=== PATIENT | female | born 1990 | race Two or more races ===

== ENCOUNTER 2024-07-21 09:27 | Outpatient (CLI) | payer OTHER, SELFPAY ==
[2024-07-21] VITALS (8 sets, daily range): BP systolic 119–125; BP diastolic 81–89; PULSE 74–90; BMI 31.9
[2024-07-21 10:11] LABS: Add Urine Microscopic? YES; Appearance Urine Cloudy (Clear); Bacteria Urine 2+ /hpf; Bilirubin Urine Negative (Negative); Blood Urine 1+ (Negative); Color Urine Yellow (Yellow); Glucose Urine UA Negative (Negative); Ketones Urine Negative (Negative); Leukocyte Esterase Ur 2+ LEU/UL (Negative); Nitrate Urine Negative (Negative); Non Pathogenic Casts 0-2; Protein Urine Negative (Negative); Specific Grav Ur 1.015 (1.001-1.035); Squamous Epithelial Cell Urine Moderate /hpf (Few); pH Urine 6.5 (5.0-9.0)
[2024-07-21 10:17] LABS: Total Protein Urine Random 10 mg/dL; Ur Ttl Prot Creatinine Ratio 0.09 mg/mg (0-0.20)
[2024-07-21 10:23] LABS: Basophils Percent Auto 0.2 % (0.2-1.2); Eosinophils Absolute Auto 0.1 K/mm3 (0-0.3); Eosinophils Percent Auto 1.7 % (0-4.4); Hematocrit 33.7 % (37.0-47.0); Hemoglobin 11.3 g/dL (12.0-15.0); Immature Granulocyte Absolute 0.05 K/mm3 (0.00-0.031); Immature Granulocyte Percent A 0.6 % (0-0.5); Lymphocytes Absolute Auto 1.52 K/mm3 (0.9-3.2); Lymphocytes Percent Auto 18.2 % (18.3-44.2); Mean Corpuscular HGB Conc 33.5 g/dl (32-36); Mean Corpuscular Hemoglobin 31.3 pg (26-34); Mean Corpuscular Volume 93.4 fl (80-100); Mean Platelet Volume 9.9 fl (7.4-10.4); Monocytes Absolute Auto 0.6 K/mm3 (0.1-0.6); Monocytes Percent Auto 7.4 % (2.6-8.5); Neutrophils Percent Auto 71.9 % (45.5-73.1); Platelet Count Result 247 k/mm3 (150-375); Red Blood Count 3.61 M/mm3 (4.2-5.4); Red Cell Distribution Width 13.2 % (11.5-14.5); White Blood Count 8.3 K/mm3 (4.5-10.0)
--- OUTSIDE RECORDS SUMMARY | 2024-07-21 10:32 | XMS_ITS | Data Portability ---
Author Organization [facility] Howe Address [address] [place] [address] [place] [address] Assessment Encounter Date Assessment Date Assessment LastModified by Organization Details LastModified Time 07/06/2024 07/06/2024 Patient is36 ___weeks . Discussed plan. [email or web address] Not available 07/06/2024 13:35:10 07/14/2024 07/14/2024 Patient is ___weeks . Discussed plan. [email or web address] Not available 07/14/2024 11:14:23 Plan of Treatment Reminders Order Date Submit Date Provider Last Modified By Organization Details Last Modified Time Details Appointments OB ROUTINE 2024 08:30A Kyle Granda CNM Not available Not available Not available INDUCTION 2024 05:00A Kyle Granda CNM Not available Not available Not available Lab streptoco ccus group B, culture, unspecifi ed specimen 2024 025 [facility] (Lab), [address], [place], [address], 07/09/2024 12:00:41 Referral None recorded. Procedures None recorded. Surgeries None recorded. Imaging US, obstetric , follow-up 2024 025 [email or web address] [place], [address], [address], [place], [address], 07/14/2024 17:09:20 US, obstetric , follow-up 2024 [address], [address], [place], [address], 07/06/2024 14:13:21 Medication Orders None recorded. Patient TargetsNo targets recorded. Patient InstructionsNo instructions recorded. Reason for Referral None Reported. Results Created Date Observation Date Name Description Value Unit Range Abnormal Flag Note LastModifiedBy Organization Detail LastModifiedTime 06/09/1906/08/2024 US, obste tric, follo w-up No observ ation record ed. [address], [place], [address], 06/08/2024 12:38:59 06/09/1906/08/2024 US, obste tric, follo w-up No observ ation record ed. [email or web address] Mariella [address], [place], [address], 06/10/2024 00:26:35 07/07/19 25 07/06/2024 US, obste tric, follo w-up No observ ation record ed. [address], [place], [address], 07/06/2024 14:10:38 07/07/19 25 07/06/2024 US, obste tric, follo w-up No observ ation record ed. [email or web address] Mariella [address], [place], [address], 07/07/2024 14:46:43 07/15/19 25 07/14/2024 US, obste tric, follo w-up No observ [facility]ion [email or web address] [address], [place], [address], 07/14/2024 13:18:32 07/15/19 25 07/14/2024 US, obste tric, follo w-up No observ ation record ed. [address], [place], [address], 07/20/2024 13:24:33 Result Notes None recorded. Problems Name Problem SNOMED Code Status Onset Date Resolution Date Notes Provider Name and Address Organization Details Recorded Time 98797284 Active 2023 Sara Head [facility], [facility] 4 13:04:06 Dilatatio n of renal pelvis 123479941 Active rpt us at 32wks Estephania Everett [facility], [facility] 5 21:38:04 Large for gestation age fetus 686409154 Active LIKELY MACROSOMI C AT 39 WKS Ted Bennett MD [address], [place], [address], [facility] 5 11:39:21 Notes:Encounter for antenata l screening of mother Recorded Elsewhere: No Location: [facility] Source: EHR Chronic: N Practice ID: [id number] Billable Time: 10:30:00 AM Encounter for screening of mother Practice ID: [id number] Encounter for screening of mother Recorded Elsewhere: No Location: [facility] Source: EHR Chronic: N Practice ID: [id number] Billable Time: 05:30:00 PM Encounter for screening of mother Practice ID: [id number] Problem Notes None recorded. Procedures Surgical History Date Name Laterality Status Provider Name and Address Organization Details Recorded Time 06/20/19 24 Date of Last Pap Smear completed Lesley Lindquist [facility] 12/31/2023 16:43:07 06/19/19 23 IUD Removal completed JOSÉ Abreu- [address], [place], [address], [facility] 06/18/2022 10:32:54 03/31/19 09 extraction of wisdom tooth completed Lesley Lindquist [facility] 03/12/2022 10:18:33 03/31/18 95 Tonsillectomy completed Lesley Lindquist [facility] 03/12/2022 10:18:19 Imaging Results Imaging Date Name Status LastModified by Organiz ation Details LastModified Time 06/08/2024 US, obstetric, follow-up completed pari [place] [address], [place], [address], 06/08/2024 12:38:59 06/08/2024 US, obstetric, follow-up completed payton Mariella [address], [place], [address], 06/10/2024 00:26:35 07/06/2024 US, obstetric, follow-up completed [email or web address] [place] [address], [place], [address], 07/06/2024 14:10:38 07/06/2024 US, obstetric, follow-up completed [email or web address] [address], [place], [address], 07/07/2024 14:46:43 07/14/2024 US, obstetric, follow-up completed [email or web address] [place] [address], [place], [address], 07/14/2024 13:18:32 07/14/2024 US, obstetric, follow-up completed Mariella [address], [place], [address], 07/20/2024 13:24:33 Procedure Notes None recorded. Medical Equipment None Reported. Allergies No known drug allergies Medications Name Sig Start Date Stop Date Status Note LastModified by Organization Details LastModified Time Mirena 21 mcg/24 hr (up to 8 years) 52 mg intrauter ine device 06/19 completed Prescrib ed Elsewher e: Yes Loca tion: [facility] M odify By: nahun martinezuntgregoria DateTime : 10/06/19 16 02:45:00 PM Not Available Not Available Not Available Metrogel Vaginal 0.75 % (37.5 mg/5 gram) insert 1 applicat orful by vaginal route every day at bedtime for 5 nights 09/19 completed Prescrib ed Elsewher e: No Locat ion: [facility]ista [facility] odify By: claudia gonzalez DateTime : 02/06/20 16 10:08:41 AM Not Available Not Available Not Available Flagyl 500 mg tablet take 1 tablet by oral route every 12 hours 03/12 completed Prescrib ed Elsewher e: No Locat ion: [facility] michele [facility] odify By: matthieu Bautista ncounter DateTime : 07/07/19 19 11:27:07 AM Not Available Not Available Not Available Vitamin D2 1,250 mcg (50,000 unit) capsule take 1 capsule by oral route every week 08/30 completed Prescrib ed Elsewher e: No [facility] By: nahun Bautista ncounter DateTime : 05/24/19 16 09:56:01 AM Not Available Not Available Not Available metoclopr amide 10 mg tablet 07/21 completed Not Available Not Available Not Available Zithromax 500 mg tablet take 2 tablet (1000MG) by oral route once 05/12 completed Prescrib ed Elsewher e: No Locat ion: [facility] michele [facility] odify By: jlely Gutiérrez untgregoria DateTime : 04/27/19 13 10:35:40 AM Not Available Not Available Not Available Mononessa (28) 0.25 mg-35 mcg tablet TAKE 1 TABLET BY ORAL ROUTE EVERY DAY 01/24 completed Prescrib ed Elsewher e: No [facility] By: dimas barros DateTime : 08/12/19 15 01:01:57 PM Not Available Not Available Not Available active Not Available Not Avai lable Not Available Triveen-D uo DHA 29 mg-1 mg-400 mg oral pack take 2 by Oral route once for 30 days 02/22 completed Prescrib ed Elsewher e: No Locat ion: [facility]hael bautista [facility] M odify By: nawaf Bautista ncounter DateTime : 01/25/20 10:30:00 AM Not Available Not Available Not Available ID NOW COVID-19 Test Kit TEST DIRECTED TODAY 06/18 completed Not Available Not Available Not Available Vitals Date Recorded Body weight Body mass index (BMI) Body height Systolic blood pressure Diastolic blood pressure Provider Name and Address Organization Details Last Updated DateTime 07/06/2024 74871.69 689 g 31.8 kg/m2 167.64 cm 127 mm[Hg] 84 mm[Hg] Lesley Lindquist [facility] 11:23:17 Date Recorded Body weight Systolic blood pressure Diastolic blood pressure Provider Name and Address Organization Details Last Updated DateTime 07/14/2024 25663.6587 4 g 143 mm[Hg] 96 mm[Hg] Shanel Simon [facility] 07/14/2024 11:15:20 Date Recorded Body height Body mass index (BMI) Body weight Systolic blood pressure Diastolic blood pressure Provider Name and Address Organization Details Last Updated DateTime 07/21/2024 167.64 cm 32.8 kg/m2 82688.25 g 134 mm[Hg] 90 mm[Hg] Lesley Lindquist [facility] 09:42:21 Social History Question Answer Notes LastModified by Organizat ion Details LastModified Time Tobacco Smoking Status [facility] 06/18/2022 09:47:22 What Is Your Level Of Alcohol Consumption? None [email or web address] Information not available 12/31/2023 If You Are , What Was Your Level Of Alcohol Consumption Prior To ? Occasional Information not available 06/18/2022 Are You Blind Or Do You Have Difficulty Seeing? No [email or web address] Information not available 03/12/2022 What Is Your Level Of Caffeine Consumption? Moderate [email or web address] Information not available 03/12/2022 How Much Tobacco Do You Chew? None [email or web address] Information not available 03/12/2022 In The 14 Days Before Symptom Onset, Have You Had Close Contact With A Laboratory-confir med COVID-19 While That Case Was Ill? No [email or web address] Information not available 03/12/2022 In The 14 Days Before Symptom Onset, Have You Had Close Contact With A Person Who Is Under Investigation For COVID-19 While That Person Was Ill? No [email or web address] Information not available 03/12/2022 Have You Been To An Area Known To Be High Risk For COVID-19? No [email or web address] Information not available 03/12/2022 Are You Currently Employed? Yes [email or web address] Information not available 06/08/2024 Are You Deaf Or Do You Have Serious Difficulty Hearing? No [email or web address] Information not available 03/12/2022 What Type Of Diet Are You Following? REGULAR Information not available 03/12/2022 What Is The Highest Grade Or Level Of School You Have Completed Or The Highest Degree You Have Received? 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 No [email or web address] Information not available 03/12/2022 Have You Ever Been Counseled For Unhealthy Alcohol Use? No Information not available 06/18/2022 Do You Use Protection During Sex? Usually [email or web address] Information not available 03/12/2022 Do You Use Your Seat Belt Or Car Seat Routinely? Yes [email or web address] Information not available 03/12/2022 Are You Sexually Active? Yes [email or web address] Information not available 05/25/2024 Do You Have Smoke And Carbon Monoxide Detectors In Your Home? Yes [email or web address] Information not available 03/12/2022 How Much Tobacco Do You Smoke? No [email or web address] Information not available 03/12/2022 Do You Feel Stressed (tense, Restless, Nervous, Or Anxious, Or Unable To Sleep At Night)? [id number] Information not available 06/18/2022 Do You Use Any Illicit Or Recreational Drugs? No [email or web address] Information not available 03/12/2022 Do You Use Sunscreen Routinely? Yes [email or web address] Information not available 03/12/2022 Has Tobacco Cessation Counseling Been Provided? No Information not available 06/18/2022 Have You Used IV Drugs? No [email or web address] Information not available 03/12/2022 Do You Or Have You Ever Used Any Other Forms Of Tobacco Or Nicotine? No Information not available 06/18/2022 Sex: Unknown Functional Status Question Answer Note LastModified by Organizat ion Details LastModified Time Do you have difficulty walking or climbing stairs? No Information not available 06/18/2022 Are you able to walk? YESWOREST [email or web address] Information not available 03/12/2022 Are you able to care for yourself? Yes Information not available 06/18/2022 Do you have difficulty dressing or bathing? No Information not available 06/18/2022 What is your exercise level? Moderate Information not available 03/12/2022 Mental Status None recorded. Family History Relationship Description Onset Age of this Age Resolved Age Notes LastModified by Organization Details LastModified Time Father Diabetes mellitus [email or web address] Not available 03/12 10:16:46 Mother Diabetes mellitus [email or web address] Not available 03/12 10:17:04 Maternal Grandmother Diabetes mellitus [email or web address] Not available 03/12 10:17:15 Maternal Grandfather Heart disease Not available 03/12 10:17:30 Medical History Condition Response Allergies (Food, seasonal, environmental ) N Other N Breast Cancer N Drug/Latex Allergies/Reactions N Blood Transfusion N Dermatologic Disorders N Lung Disease N Defects or Inherited Disease N Breast Problem N Gestational Diabetes N Hematologic disorders N Anesthesia Complications N History of STI Y Deep Vein Thrombosis N Polycystic ovary syndrome N Anxiety Disorder N Autoimmune disease N Arthritis N Infertility N Polyps N Acid Reflux (GERD) N History of abnormal pap N Cancer N Stroke N Varicosities N Neurologic/Epilepsy N Endometriosis N High Cholesterol N Headaches N Fibromyalgia N Kidney Disease N Heart Problems N Kidney or Bladder Problems N Thyroid Problems N GI Problems N Eating Disorder N Anemia N Art (IVF or FET) N Psychiatric Illness N Ovarian Cancer N Diabetes N Pulmonary (TB, Asthma) N Hepatitis/Liver Disease N No Past Medical History N Eczema N Urinary Tract Infection N Abuse/Domestic Violence N Asthma N Trauma/Violence N Depression/ depression N Heart Disease N Pre-Eclampsia N Hypertension N Osteoporosis N Thrombophilias N Gynecological History Statement/Question Response Abnormal Pap N Flow Moderate Date of Last Mammogram Date of LMP 10/23/2023 N On BCP's at Conception? Y STIs/STDs N Was last menstrual period normal Y HPV Vaccine N Current Control Method Age at First Child 25 Are cycles usually normal Y Sexually Active? N None Date of DEXA bone scan Age of first menstrual cycle 10 Date of Last Pap Smear 06/20/2023 Sexual Problems? N LMP Definite Desired Control Method None N Obstetrics History GPAL:G 2 P 1 0 0 1 Type Value Full Term 1 Living 1 Total 2 Past Encounters Encounter ID Performer Location Encounter Start Date Encounter Closed Date Diagnosis/Indication Diagnosis SNOMED-CT Code Diagnosis ICD10 Code Diagnosis Note [id number] Wendy Hubbard [facility] [address] [address] 03/12/2022 09:49:18 03/12/2022 10:45:12 Venereal disease screening 981144612 Z11.3 Here today for updated STD screening. Will schedule WWE for May 2022.Will reach out with results portal/lexii l if abn. Safe sex informatio n counseling provided.H jerry Hx updated Time spent in visit is a total of 30 mins with at least 50% of visit consisting of counseling and review of plan of care. [id number] Wendy Hubbard [facility] [address] [address] 06/18/2022 09:31:34 06/18/2022 11:13:12 Gynecologic examination 12633681 Z01.419 Take Calcium with Vitamin D 1200mg daily if not receiving in daily diet. It is strongly advised to have an annual flu shot and up can obtain at most pharmacies . If you have not had a TDap shot in the last 10 years you should obtain one as well. Discussed with patient & provided with informatio n regarding Gardisil vaccine to prevent the 4 strains for HPV that cause cervical cancer if under age 26. Encourage safe sexual practices, to use condoms and limit partners if not already in a monogamous relationsh ip. Do monthly self breast exams. Have mammogram yearly or every other year depending on family history. BRCA testing is now available for patients with strong genetic history of female cancer. If interested contact the office. Engage in daily exercise of low impact aerobic exercise 45-60 minutes 4-5 times weekly. Avoid tobacco and illicit drugs as well as using moderation with alcohol intake less than 1-2 8 oz beverages daily. This lifestyle behavior pattern will lead to less health conditions and longer life span. If BMI greater than 25 weight watchers or dietary consult advised. Patient received above instructio ns, and questions have been answered. If you have any questions please call or respond to this email. Patient was made aware of the patient portal and may obtain a paper copy of today's plan if desired. Pap/hpv sent STD Screen sent Genetic Screen discussed Colon Screen na Dexa Screen na Routine Labs PCPMammo na Removal of intrauterine device 99410801 Z30.432 It was explained that she may have bleeding or spotting after the removal of the device today as well. If cannot see the strings of this device we will need to get an US image to make that the device is still in place and not in an unobtainab le position. She expressed understand ing of all the above instructio ns. [id number] Wendy Hubbard , [facility] [address] [address] 06/20/2023 09:23:38 06/20/2023 09:42:05 Gynecologic examination 58359060 Z11.51 Z11.3 Z11.8 Take Calcium with Vitamin D 1200mg daily if not receiving in daily diet. It is strongly advised to have an annual flu shot and up can obtain at most pharmacies . If you have not had a TDap shot in the last 10 years you should obtain one as well. Discussed with patient & provided with informatio n regarding Gardisil vaccine to prevent the 4 strains for HPV that cause cervical cancer if under age 26. Encourage safe sexual practices, to use condoms and limit partners if not already in a monogamous relationsh ip. Do monthly self breast exams. Have mammogram yearly or every other year depending on family history. BRCA testing is now available for patients with strong genetic history of female cancer. If interested contact the office. Engage in daily exercise of low impact aerobic exercise 45-60 minutes 4-5 times weekly. Avoid tobacco and illicit drugs as well as using moderation with alcohol intake less than 1-2 8 oz beverages daily. This lifestyle behavior pattern will lead to less health conditions and longer life span. If BMI greater than 25 weight watchers or dietary consult advised. Patient received above instructio ns, and questions have been answered. If you have any questions please call or respond to this email. Patient was made aware of the patient portal and may obtain a paper copy of today's plan if desired. Pap/hpv sent STD Screen sent Genetic Screen discussed Colon Screen na Dexa Screen na Routine Labs PCPMammo na Brittney Charles [facility] [address] [address] 12/25/2023 16:51:03 12/25/2023 17:31:03 test positive 995699302 Z32.01 [id number] Josette Granda [facility] [address],[place] [address] 12/31/2023 17:27:14 01/01/2024 09:37:09 Venereal disease screening 014773923 Z11.3 Amenorrhea 29014728 N91. 2 reviewed precaution s and educationn ipt and labs with new ob and first lookpap up to dateok for reglancont inue vitamin.pr obiotics ok Nausea and vomiting 1693 2000 R11.2 [id number] Gianna Archibald [facility] [address],[place] [address] 01/19/2024 12:31:46 01/19/2024 13:36:52 screening 994903798 Z36.82 Z3A.12 [id number] MAJO HILL MD [facility] [address],[place] [address] 01/19/2024 13:57:21 01/19/2024 14:32:12 Routine care 120107957 Z34.91 [id number] MAJO HILL MD [facility] [address],[place] [address] 02/16/2024 09:21:31 02/16/2024 10:04:27 Routine care 910746004 Z34.91 [id number] [facility] [address],[place] [address] 03/15/2024 11:04:28 03/15/2024 12:28:07 screening for malformation 619945644 Z36.3 Z3A.20 [id number] MAJO HILL MD [facility] [address],[place] [address] 03/15/2024 11:04:47 03/15/2024 12:41:43 Routine care 982265637 Z34.91 [id number] [facility] [address],[place] [address] 04/12/2024 09:54:28 04/12/2024 10:42:50 screening 215503824 Z36.2 Gestation period, 24 weeks 391351551 Z3A.24 [id number] MAJO HILL MD [facility] [address],[place] [address] 04/12/2024 09:54:47 04/12/2024 11:00:08 Dilatation of renal pelvis 325030758 O36.8999 - bilateral- L 4.2mm, R4.8mm at 24 weeks. 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 Gestation period, 30 weeks 48018539 Z3A.30 - continue PNV [id number] [facility] [address],[place] [address] 06/08/2024 11:27:46 06/08/2024 12:21:44 condition affecting obstetrical care of mother 367543311 O35.8XX0 Z3A.32 [id number] MAJO HILL MD [facility] [address],[place] [address] 06/08/2024 11:28:04 06/08/2024 12:48:57 Excessive growth affecting management of mother 36556620 O36.63X0 - 98% at 32 weeks- repeat at 36 weeks Gestation period, 32 weeks 5554351 Z3A.32 [id number] Josette Granda [facility] [address],[place] [address] 06/23/2024 09:54:36 06/23/2024 10:15:17 Gestation period, 34 weeks 02515296 Z3A.34 [id number] [facility] [address],[place] [address] 07/06/2024 10:34:20 07/06/2024 11:18:17 Large for gestation age fetus 325100416 O36.63X0 Z3A.36 [id number] Josette Granda [facility] [address],[place] [address] 07/06/2024 10:34:37 07/06/2024 13:49:43 Gestation period, 36 weeks 54553581 Z3A.36 screening 2437 52986 Z36.85 [id number] [facility] [address],[place] [address] 07/14/2024 10:33:46 07/14/2024 11:13:19 Large for gestation age fetus 434959847 O36.63X0 Z3A.37 [id number] Ted Bennett MD [facility] [address],[place] [address] 07/14/2024 10:34:00 07/14/2024 11:45:44 Routine care 008308593 Z34.83 Health Concerns Section Related Observation LastModified by Organization Detai ls LastModified Time None Recorded Concern Status LastModified by Organization Details LastModified Time None Recorded Advance Directives Directive None Recorded Payers Encounter Date Sequence Insurance Name Policy Number Policy Torres Covered Member ID Torres Member ID Guarantor Name 07/06/[address] [facility] [id number] Lisa Gupta [id number] Lisa Gupta 07/06/[address] [facility] [id number] Lisa Gupta [id number] Lisa Gupta 07/14/[address] [facility] [id number] Lisa Gupta [id number] Lisa Gupta 07/14/[address] [facility] [id number] Lisa Gupta [id number] Lisa Gupta OBGyn Episode Ob Episode Information Episode Created Date Number of Fetuses Patient Bloodtype Patient rh Status Prepregnancy Weight lbs Domestic Partner Domestic Partner Phone Father Name Marketing Copywriter Status 03/12/20 1 CLOSED Fetus Data First Name Last Name Admitted to NICU Weight (g) Sex Living Outcome Pediatric Complications Fetus ID Race Codes Race Delivery Type 3628.73 6 M Full Term [id number] Vaginal Delivery Devon Calculation Initial Devon Date Initial Exam Date Initial Exam Provider Initial Ultrasound Date Last Menstrual Period Date Ultra Sound Weeks Gestation 0 Eighteen To Twenty Week Devon Update Ultra Sound Date Fundal Height At Umbil Quickening Date Ultra Sound Latest Weeks Gestation Final Devon Confirmed By Final Devon Confirmed Date Final Devon Date Ultra Sound Latest Days Gestation 0 0 Menstrual History Last Menstrual Date Menses Monthly On Bcp Conception Prior Menses Frequency Hcg Plus Date Menarche Onset Age Delivery Information Delivery Date Delivery Type Labor Anesthesia Weeks Gestation Incision Type Labor Labor Length Hrs Delivered By Post Complications Tubal Sterilization Discharge Date Comments 6 40 +GBS / placenta previa Discharge Information Feeding Method Contraceptive Method Maternal HG B and HCT Levels Ob Episode Information Episode Created Date Number of Fetuses Patient Bloodtype Patient rh Status Prepregnancy Weight lbs Domestic Partner Domestic Partner Phone Father Name Marketing Copywriter Status 03/12/20 22 1 DELETED Devon Calculation Initial Devon Date Initial Exam Date Initial Exam Provider Initial Ultrasound Date Last Menstrual Period Date Ultra Sound Weeks Gestation 0 Eighteen To Twenty Week Devon Update Ultra Sound Date Fundal Height At Umbil Quickening Date Ultra Sound Latest Weeks Gestation Final Devon Confirmed By Final Devon Confirmed Date Final Devon Date Ultra Sound Latest Days Gestation 0 0 Menstrual History Last Menstrual Date Menses Monthly On Bcp Conception Prior Menses Frequency Hcg Plus Date Menarche Onset Age Delivery Information Delivery Date Delivery Type Labor Anesthesia Weeks Gestation Incision Type Labor Labor Length Hrs Delivered By Post Complications Tubal Sterilization Discharge Date Comments 6 false Boy-Meng Discharge Information Feeding Method Contraceptive Method Maternal HG B and HCT Levels Ob Episode Information Episode Created Date Number of Fetuses Patient Bloodtype Patient rh Status Prepregnancy Weight lbs Domestic Partner Domestic Partner Phone Father Name Marketing Copywriter Status 01/19/20 24 1 B Positive 181 Claudio Singh OPEN Fetus Data First Name Last Name Admitted to NICU Weight (g) Sex Living Outcome Pediatric Complications Fetus ID Race Codes Race Delivery Type [id number] Problems Problem Notes 32wk growth Problem Name Start Date End Date Resolution Snomed Code Not e Large for gestation age fetus LIKELY MACROSOM IC AT 39 WKS Dilatation of renal pelvis rpt us at 32wks Devon Calculation Initial Devon Date Initial Exam Date Initial Exam Provider Initial Ultrasound Date Last Menstrual Period Date Ultra Sound Weeks Gestation 07/29/2024 01/19/2024 12/25/2023 10/23/2023 8 Eighteen To Twenty Week Devon Update Ultra Sound Date Fundal Height At Umbil Quickening Date Ultra Sound Latest Weeks Gestation Final Devon Confirmed By Final Devon Confirmed Date Final Devon Date Ultra Sound Latest Days Gestation 0 [email or web address] 01/19/2024 07/30/19 25 0 Pre- Flowsheet Flowsheet Date 01/19/2024 Cummins Score Blood Edema Fundus Height Fundus Units Glucose Ketones Leukocytes Nitrite Labor Signs Protein Cervic Dilation Cervic Effacement Cervic Station Type Weight in lbs Pre/Post Dialysis Refused BP Diastolic BP Location Tested BP Systolic BP Type Fetus Heart Rate Present Fetus Movement Comments Flowsheet Date 01/19/2024 Cummins Score Blood Edema Fundus Height Fundus Units Glucose Ketones Leukocytes Nitrite Labor Signs Protein Cervic Dilation Cervic Effacement Cervic Station neg none none trace Type Weight in lbs Pre/Post Dialysis Refused 178.175705193030 BP Diastolic BP Location Tested BP Systolic BP Type 82 L arm 121 sitting Fetus Heart Rate Present Fetus Movement Comments Patient c/o of nausea and vo miting, improved with reglan. No cramping or bleeding. Hx of one prior uncomplicated vaginal delivery. NT/NB wnl today, desires NIPT. Will draw today with new OB labs. RTC 4 weeks. Flowsheet Date 02/16/2024 Cummins Score Blood Edema Fundus Height Fundus Units Glucose Ketones Leukocytes Nitrite Labor Signs Protein Cervic Dilation Cervic Effacement Cervic Station neg none none trace Type Weight in lbs Pre/Post Dialysis Refused Weight 172.475172346237 BP Diastolic BP Location Tested BP Systolic BP Type 75 L arm 109 sitting Fetus Heart Rate Present A 145 Fetus Movement A No Comments Patient c/o of nausea and he adaches. Discussed B2. Reglan helping with nausea. NIPT LR, other new OB labs wnl. Discussed anatomy US for next visit. RTC 4 weeks. Flowsheet Date 03/15/2024 Cummins Score Blood Edema Fundus Height Fundus Units Glucose Ketones Leukocytes Nitrite Labor Signs Protein Cervic Dilation Cervic Effacement Cervic Station Type Weight in lbs Pre/Post Dialysis Refused BP Diastolic BP Location Tested BP Systolic BP Type Fetus Heart Rate Present Fetus Movement Comments Flowsheet Date 03/15/2024 Cummins Score Blood Edema Fundus Height Fundus Units Glucose Ketones Leukocytes Nitrite Labor Signs Protein Cervic Dilation Cervic Effacement Cervic Station neg none Type Weight in lbs Pre/Post Dialysis Refused 177.602490561638 BP Diastolic BP Location Tested BP Systolic BP Type 79 L arm 121 sitting Fetus Heart Rate Present A Present Fetus Movement A Yes Comments Good movement. Nausea improving. Having a boy! Anatomy incomplete, need DA, RVOT and feet views. EFW 83%. Will repeat in 4 weeks. Circumvallate placenta, discussed 32 week growth US. RTC 4 weeks. Flowsheet Date 04/12/2024 Cummins Score Blood Edema Fundus Height Fundus Units Glucose Ketones Leukocytes Nitrite Labor Signs Protein Cervic Dilation Cervic Effacement Cervic Station Type Weight in lbs Pre/Post Dialysis Refused BP Diastolic BP Location Tested BP Systolic BP Type Fetus Heart Rate Present Fetus Movement Comments Flowsheet Date 04/12/2024 Cummins Score Blood Edema Fundus Height Fundus Units Glucose Ketones Leukocytes Nitrite Labor Signs Protein Cervic Dilation Cervic Effacement Cervic Station neg none Type Weight in lbs Pre/Post Dialysis Refused 181.057958050387 BP Diastolic BP Location Tested BP Systolic BP Type 81 L arm 120 sitting Fetus Heart Rate Present A 160 Fetus Movement A Yes Comments Patient c/o of slight nausea . Baby active. No cramping or bleeding. Anatomy complete and normal aside from mild bilateral pylectasis. EFW 74%. Discussed recheck at 32 week growth US and possible US. Patient voices understanding. Discussed GCT and labs for next visit. RTC 4 weeks. Flowsheet Date 05/10/2024 Cummins Score Blood Edema Fundus Height Fundus Units Glucose Ketones Leukocytes Nitrite Labor Signs Protein Cervic Dilation Cervic Effacement Cervic Station neg none Type Weight in lbs Pre/Post Dialysis Refused Weight 187.813547566529 BP Diastolic BP Location Tested BP Systolic BP Type 85 L arm 132 sitting Fetus Heart Rate Present A 145 Fetus Movement A Yes Comments Good movement. No cram ping or bleeding. GCT and labs today. Discussed tdap. RTC 2 weeks. Flowsheet Date 05/25/2024 Cummins Score Blood Edema Fundus Height Fundus Units Glucose Ketones Leukocytes Nitrite Labor Signs Protein Cervic Dilation Cervic Effacement Cervic Station neg none Type Weight in lbs Pre/Post Dialysis Refused 188.726196207016 BP Diastolic BP Location Tested BP Systolic BP Type 78 L arm 133 sitting Fetus Heart Rate Present A 145 Fetus Movement A Yes Comments Good movement. No cram ping or bleeding. Failed 1h GCT, passed 3h GTT. Anemia, Hgb 10.8, started Fe supplement. Will recheck in 4 weeks. Rediscussed tdap. Will repeat US next visit to monitor pyelectasis. RTC 2 weeks. Flowsheet Date 06/08/2024 Cummins Score Blood Edema Fundus Height Fundus Units Glucose Ketones Leukocytes Nitrite Labor Signs Protein Cervic Dilation Cervic Effacement Cervic Station Type Weight in lbs Pre/Post Dialysis Refused BP Diastolic BP Location Tested BP Systolic BP Type Fetus Heart Rate Present Fetus Movement Comments Flowsheet Date 06/08/2024 Cummins Score Blood Edema Fundus Height Fundus Units Glucose Ketones Leukocytes Nitrite Labor Signs Protein Cervic Dilation Cervic Effacement Cervic Station neg none Type Weight in lbs Pre/Post Dialysis Refused Weight 190.376280082500 BP Diastolic BP Location Tested BP Systolic BP Type 80 L arm 116 sitting Fetus Heart Rate Present A Present Fetus Movement A Yes Comments Good movement. No cram ping or bleeding. EFW 98%, AC 99%. Pyelectasis resolved. Repeat growth US at 36 weeks. Repeat anemia labs at next visit. Discussed preadmission. RTC 2 weeks. Flowsheet Date 06/23/2024 Cummins Score Blood Edema Fundus Height Fundus Units Glucose Ketones Leukocytes Nitrite Labor Signs Protein Cervic Dilation Cervic Effacement Cervic Station neg none Type Weight in lbs Pre/Post Dialysis Refused Weight 195.731592366749 BP Diastolic BP Location Tested BP Systolic BP Type 87 123 Fetus Heart Rate Present Fetus Movement A Yes Comments Patient is having pain and n ausea. doing well +FM, considering IOL if doesnt labor by due date, precautions, has preadmit scheduled f/u 2 weeks Flowsheet Date 07/06/2024 Cummins Score Blood Edema Fundus Height Fundus Units Glucose Ketones Leukocytes Nitrite Labor Signs Protein Cervic Dilation Cervic Effacement Cervic Station Type Weight in lbs Pre/Post Dialysis Refused BP Diastolic BP Location Tested BP Systolic BP Type Fetus Heart Rate Present Fetus Movement Comments Flowsheet Date 07/06/2024 Cummins Score Blood Edema Fundus Height Fundus Units Glucose Ketones Leukocytes Nitrite Labor Signs Protein Cervic Dilation Cervic Effacement Cervic Station neg none Type Weight in lbs Pre/Post Dialysis Refused 197.411770838073 BP Diastolic BP Location Tested BP Systolic BP Type 84 127 Fetus Heart Rate Present Fetus Movement A Yes Comments Patient is having cramping a nd discharge. efw 98% discussed 39 week IOL, will schedule, +FM, precautions and education hx of 8lb baby f/u one week Flowsheet Date 07/14/2024 Cummins Score Blood Edema Fundus Height Fundus Units Glucose Ketones Leukocytes Nitrite Labor Signs Protein Cervic Dilation Cervic Effacement Cervic Station Type Weight in lbs Pre/Post Dialysis Refused BP Diastolic BP Location Tested BP Systolic BP Type Fetus Heart Rate Present Fetus Movement Comments Flowsheet Date 07/14/2024 Cummins Score Blood Edema Fundus Height Fundus Units Glucose Ketones Leukocytes Nitrite Labor Signs Protein Cervic Dilation Cervic Effacement Cervic Station Type Weight in lbs Pre/Post Dialysis Refused 202.872577686276 BP Diastolic BP Location Tested BP Systolic BP Type 96 L arm 143 sitting Fetus Heart Rate Present A 145 Fetus Movement A Yes Comments LENGTHY DISCUSSION REGARDING POSSIBLE MACROSOMIA AND THE RISKS RELATED TO THAT. Described shoulder dystocia, described injury to the brachial plexus and paralysis. Patient is undecided about mode of delivery. Gave her A description/background on delivery at the recovery. Flowsheet Date 07/21/2024 Cummins Score Blood Edema Fundus Height Fundus Units Glucose Ketones Leukocytes Nitrite Labor Signs Protein Cervic Dilation Cervic Effacement Cervic Station neg none Type Weight in lbs Pre/Post Dialysis Refused Weight 203.059813935610 BP Diastolic BP Location Tested BP Systolic BP Type 90 134 Fetus Heart Rate Present Fetus Movement A Yes Comments Patient is having back pain and discharge. Menstrual History Last Menstrual Date Menses Monthly On Bcp Conception Prior Menses Frequency Hcg Plus Date Menarche Onset Age 0710/23/2023 Delivery Information Delivery Date Delivery Type Labor Anesthesia Weeks Gestation Incision Type Labor Labor Length Hrs Delivered By Post Complications Tubal Sterilization Discharge Date Comments Discharge Information Feeding Method Contraceptive Method Maternal HG B and HCT Levels
--- OUTSIDE RECORDS SUMMARY | 2024-07-21 10:32 | XMS_ITS | Clinical Summary ---
Author Organization [facility] Address [address] [place] [address] Phone Care Team Providers Care Nutrition Educator Name Role Phone Unavailable Primary Care Provider Unavailabl e Social History Tobacco Use Types Packs/Day Years Used Date Smoking Tobacco: Never Assessed Comments Unknown Sex and Gender Information Value Date Recorded Sex Assigned at Not on file Legal Sex Female 1:14 PM CDT Gender Identity Not on file Sexual Orientation Not on file Plan of Treatment Health Maintenance Due Date Last Done Comments DTAP/TDAP/TD VACCINES (1 - Tdap) 2009 HEPATITIS B VACCINES (1 of 3 - 19+ 3-dose series) 2009 HPV/Cotest (21-29) 09/26/2011 CERVICAL CANCER SCREENING 2020 HPV/Cotest (30-65) 2020 PAP SMEAR 2020 INFLUENZA VACCINE (#1) 2023 HPV VACCINES Aged Out No longer eligi ble based on patient's age to complete this topic
--- OUTSIDE RECORDS SUMMARY | 2024-07-21 10:32 | XMS_ITS | CONTINUITY OF CARE DOCUMENT ---
Author Name geovannasadia moni Address Unknown Organization [facility] Address [address] [place] [address] Phone [phone] Care Team Providers Care Deliver Driver Name Role Phone KHAI MILLER MD Unavailable INSURANCE PROVIDERS Payer name Policy type / Coverage type [employer] party ID [employer] Other [id number]
[2024-07-21 10:36] LABS: Alanine Aminotransferase 11 U/L (6-35); Albumin Level 3.5 g/dL (3.5-5.1); Alkaline Phosphatase 188 U/L (38-126); Anion Gap 9 mmol/L (4-12); Aspartate Amino Transferase 19 U/L (14-36); Bilirubin,Total 0.7 mg/dL (0.2-1.3); Blood Urea Nitrogen 4 mg/dL (7-17); Calcium 8.5 mg/dL (8.4-10.2); Carbon Dioxide 20 mmol/L (22-30); Chloride 107 mmol/L (98-107); Estimated Glomerular Filt Rate > 60; Glucose 77 mg/dL (65-110); Potassium 3.8 mmol/L (3.4-5.0); Sodium 136 mmol/L (137-145); Uric Acid 6.2 mg/dL (2.5-7.5)
--- NOTE | 2024-07-21 10:49 | PC.NURSE ---
Called Josette Granda CNM, discussed lab results and BP 120s/80s. Blood present in urine with moderate squamous cells present. Order received to dc pt. to home and Pt. to keep scheduled induction on sunday 07/23.
== END 2024-07-21 11:15 | disposition home or self-care (01) ==
LOC: ANHOBOP 09:31 → ANHOBPP 09:35
PROVIDERS: Visit Provider Advanced Practice Midwife
DX: O13.9 Gestational [pregnancy-induced] hypertension without significant proteinuria, unspecified trimester (principal); Z3A.00 Weeks of gestation of pregnancy not specified
CPT/HCPCS: 36415; 59025; 80053; 81001; 82570; 84156; 84550; 85025; 99199

== ENCOUNTER 2024-07-23 05:02 | Inpatient (IN) | payer OTHER, SELFPAY ==
[2024-07-23] VITALS (177 sets, daily range): BP systolic 77–168; BP diastolic 44–124; PULSE 64–244; RESP 18; TEMP 36.3–36.8; O2SAT 82–100; BMI 31.7
--- OUTSIDE RECORDS SUMMARY | 2024-07-23 05:08 | XMS_ITS | Clinical Summary ---
Author Organization [facility] Address [address] [place] [address] Phone Care Team Providers Care Instrument Technician Helper Name Role Phone Unavailable Primary Care Provider [...]
--- OUTSIDE RECORDS SUMMARY | 2024-07-23 05:08 | XMS_ITS | Data Portability ---
Author Organization [facility] [place] Address [address] [place] [address] [place] [address] Care Team Providers Care Liner Inserter Name Role Phone EDMUNDO LAZARO Primary Care Provider Assessment Encounter Date Assessment Date Assessment LastModified by Organization Details LastModified Time 07/06/2024 07/06/2024 Patient is36 ___weeks . Discussed plan. Not available 07/06/2024 13:35:10 07/14/2024 07/14/2024 Patient is ___weeks . Discussed plan. [email or web address] Not available 07/14/2024 11:14:23 07/21/2024 07/21/2024 Patient is __38_weeks . Discussed plan. [email or web address] Not available 07/21/2024 11:59:13 Plan of Treatment Reminders Order Date Submit Date Provider Last Modified By Organization Details Last Modified Time Details Appointments INDUCTION 2024 05:00A M Josette Granda CNM Not available Not available Not available Lab streptoco ccus group B, culture, unspecifi ed specimen 2024 025 [facility] (Lab), [address], [place], [address], 07/09/2024 12:00:41 Referral None recorded. Procedures None recorded. Surgeries None recorded. Imaging US, obstetric , follow-up 2024 025 [email or web address] [place], [address], [address], [place], [address], 07/14/2024 17:09:20 US, obstetric , follow-up [address], [address], [address], [place], [address], 07/06/2024 14:13:21 Medication Orders None recorded. Patient TargetsNo targets recorded. Patient InstructionsNo instructions recorded. Reason for Referral None Reported. Results Created Date Observation Date Name Description Value Unit Range Abnormal Flag Note LastModifiedBy Organization Detail LastModifiedTime 06/09/19 25 06/08/2024 US, obste tric, follo w-up No observ ation record ed. [address], [place], [address], 06/08/2024 12:38:59 06/09/1906/08/2024 , obste tric, follo w-up No observ ation record ed. [email or web address] [address], [place], [address], 06/10/2024 00:26:35 07/07/19 25 07/06/2024 US, obste tric, follo w-up No observ ation record ed. [address], [place], [address], 07/06/2024 14:10:38 07/07/19 25 07/06/2024 US, obste tric, follo w-up No observ ation record ed. [email or web address] [address], [place], [address], 07/07/2024 14:46:43 07/15/19 25 07/14/2024 US, obste tric, follo w-up No observ ation record ed. [email or web address] [address], [place], [address], 07/14/2024 13:18:32 07/15/19 25 07/14/2024 US, obste tric, follo w-up No observ ation record ed. [address], [place], [address], 07/20/2024 13:24:33 Result Notes None recorded. Problems Name Problem SNOMED Code Status Onset Date Resolution Date Notes Provider Name and Address Organization Details Recorded Time 70130541 Active 2023 Saramichele Shultzen [facility], [facility] 4 13:04:06 Dilatatio n of renal pelvis Active rpt us at 32wks Estephania Karlos [facility] 5 21:38:04 Large for gestation age fetus 751589586 Active LIKELY MACROSOMI C AT 39 WKS Ted Bennett MD [address], [place], [address], [facility] 5 11:39:21 Notes:Encounter for antenata l screening of mother Recorded Elsewhere: No Location: [facility] Source: EHR Chronic: N Practice ID: [id number] Billable Time: 10:30:00 AM Encounter for screening of mother Practice ID: [id number] Encounter for screening of mother Recorded Elsewhere: No Location: [facility] Source: EHR Chronic: N Practice ID: [id number] Billable Time: 05:30:00 PM Encounter for screening of mother Practice ID: 0001 Problem Notes None recorded. Procedures Surgical History Date Name Laterality Status Provider Name and Address Organization Details Recorded Time 06/20/19 24 Date of Last Pap Smear completed Lesley Lindquist [facility] 12/31/2023 16:43:07 06/19/19 23 IUD Removal completed JOSÉ Abreu- [address], [place], [address], [facility] 06/18/2022 10:32:54 03/31/19 09 extraction of wisdom tooth completed Lesley Lindquist [facility] 03/12/2022 10:18:33 03/31/18 95 Tonsillectomy completed Lesley Lindquist [facility] 03/12/2022 10:18:19 Imaging Results Imaging Date Name Status LastModified by Organiz ation Details LastModified Time 06/08/2024 US, obstetric, follow-up completed [email or web address] [place] [address] [address], [place], [address], 06/08/2024 12:38:59 06/08/2024 US, obstetric, follow-up completed payton [address], [place], [address], 06/10/2024 00:26:35 07/06/2024 US, obstetric, follow-up completed [email or web address] [place] [address] [address], [place], [address], 07/06/2024 14:10:38 07/06/2024 US, obstetric, follow-up completed Mariella [address], [place], [address], 07/07/2024 14:46:43 07/14/2024 [facility] [address], [place], [address], 07/14/2024 13:18:32 07/14/2024 US, obstetric, follow-up completed [email or web address] [address], [place], [address], 07/20/2024 13:24:33 Procedure Notes None recorded. Medical Equipment None Reported. Allergies No known drug allergies Medications Name Sig Start Date Stop Date Status Note LastModified by Organization Details LastModified Time Mirena 21 mcg/24 hr (up to 8 years) 52 mg intrauter ine device 06/19 completed Prescrib ed Elsewher e: Yes Loca tion: Raphael bautista [facility] odify By: amkrosaura Bautista ncounter DateTime : 10/06/19 16 02:45:00 PM Not Available Not Available Not Available Metrogel Vaginal 0.75 % (37.5 mg/5 gram) insert 1 applicat orful by vaginal route every day at bedtime for 5 nights 09/19 completed Prescrib ed Elsewher e: No Locat ion: Raphael bautista [facility] odify By: claudia gonzalez DateTime : 02/06/20 16 10:08:41 AM Not Available Not Available Not Available Flagyl 500 mg tablet take 1 tablet by oral route every 12 hours 03/12 completed Prescrib ed Elsewher e: No Locat ion: Raphael bautista [facility] odify By: matthieu Bautista ncounter DateTime : 07/07/19 19 11:27:07 AM Not Available Not Available Not Available Vitamin D2 1,250 mcg (50,000 unit) capsule take 1 capsule by oral route every week 08/30 completed Prescrib ed Elsewher e: No Locat ion: Raphael bautista [facility] odify By: amkrosaura Bautista ncounter DateTime : 05/24/19 16 09:56:01 AM Not Available Not Available Not Available metoclopr amide 10 mg tablet 07/21 completed Not Available Not Available Not Available Zithromax 500 mg tablet take 2 tablet (1000MG) by oral route once 05/12 completed Prescrib ed Elsewher e: No Locat ion: Raphael bautista [facility] odify By: nahum Pradoo unter DateTime : 04/27/19 13 10:35:40 AM Not Available Not Available Not Available Mononessa (28) 0.25 mg-35 mcg tablet TAKE 1 TABLET BY ORAL ROUTE EVERY DAY 01/24 completed Prescrib ed Elsewher e: No Locat ion: Raphael bautista [facility] odify By: dimas barros DateTime : 08/12/19 15 01:01:57 PM Not Available Not Available Not Available active Not Available Not Avai lable Not Available Triveen-D uo DHA 29 mg-1 mg-400 mg oral pack take 2 by Oral route once for 30 days 02/22 completed Prescrib sonya Ann e: Linnette Locat ion: Raphael michele [facility] Kyle odephraim By: nawaf Bautista audrey DateTime : 01/25/20 10:30:00 AM Not Available Not Available Not Available ID NOW COVID-19 Test Kit TEST DIRECTED TODAY 06/18 completed Not Available Not Available Not Available Vitals Date Recorded Body weight Body mass index (BMI) Body height Systolic blood pressure Diastolic blood pressure Provider Name and Address Organization Details Last Updated DateTime 07/06/2024 68504.69 689 g 31.8 kg/m2 167.64 cm 127 mm[Hg] 84 mm[Hg] Lesley Lindquist [facility] 11:23:17 Date Recorded Body weight Systolic blood pressure Diastolic blood pressure Provider Name and Address Organization Details Last Updated DateTime 07/14/2024 10779.6587 4 g 143 mm[Hg] 96 mm[Hg] Shanel Simon [facility] 07/14/2024 11:15:20 Date Recorded Body height Body mass index (BMI) Body weight Systolic blood pressure Diastolic blood pressure Provider Name and Address Organization Details Last Updated DateTime 07/21/2024 167.64 cm 32.8 kg/m2 55418.25 g 134 mm[Hg] 90 mm[Hg] Lesley Lindquist [facility] 09:42:21 Social History Question Answer Notes LastModified by Organizat ion Details LastModified Time Tobacco Smoking Status Former Sm[facility] 06/18/2022 09:47:22 What Is Your Level Of Alcohol Consumption? None [email or web address] Information not available 12/31/2023 If You Are , What Was Your Level Of Alcohol Consumption Prior To ? Occasional Information not available 06/18/2022 Are You Blind Or Do You Have Difficulty Seeing? No Information not available 03/12/2022 What Is Your Level Of Caffeine Consumption? Moderate [email or web address] Information not available 03/12/2022 How Much Tobacco Do You Chew? None [email or web address] Information not available 03/12/2022 In The 14 Days Before Symptom Onset, Have You Had Close Contact With A Laboratory-confir med COVID-19 While That Case Was Ill? No [email or web address] Information not available 03/12/2022 In The 14 Days Before Symptom Onset, Have You Had Close Contact With A Person Who Is Under Investigation For COVID-19 While That Person Was Ill? No [email or web address] Information not available 03/12/2022 Have You Been To An Area Known To Be High Risk For COVID-19? No [email or web address] Information not available 03/12/2022 Are You Currently Employed? Yes Information not available 06/08/2024 Are You Deaf Or Do You Have Serious Difficulty Hearing? No [email or web address] Information not available 03/12/2022 What Type Of Diet Are You Following? REGULAR [email or web address] Information not available 03/12/2022 What Is The Highest Grade Or Level Of School You Have Completed Or The Highest Degree You Have Received? 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 No [email or web address] Information not available 03/12/2022 Have You Ever Been Counseled For Unhealthy Alcohol Use? No Information not available 06/18/2022 Do You Use Protection During Sex? Usually [email or web address] Information not available 03/12/2022 Do You Use Your Seat Belt Or Car Seat Routinely? Yes [email or web address] Information not available 03/12/2022 Are You Sexually Active? Yes [email or web address] Information not available 05/25/2024 Do You Have Smoke And Carbon Monoxide Detectors In Your Home? Yes [email or web address] Information not available 03/12/2022 How Much Tobacco Do You Smoke? No [email or web address] Information not available 03/12/2022 Do You Feel Stressed (tense, Restless, Nervous, Or Anxious, Or Unable To Sleep At Night)? [id number] Information not available 06/18/2022 Do You Use Any Illicit Or Recreational Drugs? No [email or web address] Information not available 03/12/2022 Do You Use Sunscreen Routinely? Yes [email or web address] Information not available 03/12/2022 Has Tobacco Cessation Counseling Been Provided? No Information not available 06/18/2022 Have You Used IV Drugs? No [email or web address] Information not available 03/12/2022 Do You Or Have You Ever Used Any Other Forms Of Tobacco Or Nicotine? No Information not available 06/18/2022 Sex: Unknown Functional Status Question Answer Note LastModified by Organizat ion Details LastModified Time Do you have difficulty walking or climbing stairs? No Information not available 06/18/2022 Are you able to walk? [email or web address] Information not available 03/12/2022 Are you able to care for yourself? Yes Information not available 06/18/2022 Do you have difficulty dressing or bathing? No Information not available 06/18/2022 What is your exercise level? Moderate [email or web address] Information not available 03/12/2022 Mental Status None recorded. Family History Relationship Description Onset Age of this Age Resolved Age Notes LastModified by Organization Details LastModified Time Father Diabetes mellitus [email or web address] Not available 03/12 10:16:46 Mother Diabetes mellitus [email or web address] Not available 03/12 10:17:04 Maternal Grandmother Diabetes mellitus Not available 03/12 10:17:15 Maternal Grandfather Heart disease [email or web address] Not available 03/12 10:17:30 Medical History Condition [...] SNOMED-CT Code Diagnosis ICD10 Code Diagnosis Note [id number] Wendy Hubbard [facility] [address],[facility] [place] [address] 03/12/2022 09:49:18 03/12/2022 10:45:12 Venereal disease screening 304101866 Z11.3 Here today for updated STD screening. Will schedule WWE for May 2022.Will reach out with results portal/lexii l if abn. Safe sex informatio n counseling provided.H ealth Hx updated Time spent in visit is a total of 30 mins with at least 50% of visit consisting of counseling and review of plan of care. [id number] Wendy Hubbard [facility] [address] [address] 06/18/2022 09:31:34 06/18/2022 11:13:12 Gynecologic examination 69495734 Z01.419 Take Calcium with Vitamin D 1200mg [...] Labs PCPMammo na Removal of intrauterine device 46656880 Z30.432 It was explained that she may have bleeding or spotting after the removal of the device today as well. If cannot see the strings of this device we will need to get an US image to make that the device is still in place and not in an unobtainab le position. She expressed understand ing of all the above instructio ns. [id number] Wendy Hubbard , [facility] [address] [address] 06/20/2023 09:23:38 06/20/2023 09:42:05 Gynecologic examination 00639793 Z11.51 Z11.3 Z11.8 Take Calcium with Vitamin [...] Dexa Screen na Routine Labs PCPMammo na Ted Bennett MD [place] [address],[place] [address] 12/25/2023 16:51:03 12/25/2023 17:31:03 test positive 464977398 Z32.01 [id number] Josette Granda [facility] [address],[place] [address] 12/31/2023 17:27:14 01/01/2024 09:37:09 Venereal disease screening 932881052 Z11.3 Amenorrhea 25041167 N91. 2 reviewed precaution s and educationn ipt and labs with new ob and first lookpap up to dateok for reglancont inue vitamin.pr obiotics ok Nausea and vomiting 1693 1999 R11.2 [id number] Ted Bennett MD [place] [address],[place] [address] 01/19/2024 12:31:46 01/19/2024 13:36:52 screening 864281994 Z36.82 Z3A.12 [id number] MAJO HILL MD [place] [address],[place] [address] 01/19/2024 13:57:21 01/19/2024 14:32:12 Routine care 712694732 Z34.91 [id number] MAJO HILL MD [place] [address],[place] [address] 02/16/2024 09:21:31 02/16/2024 10:04:27 Routine care 375209214 Z34.91 [id number] Ted Bennett MD [place] [address],[place] [address] 03/15/2024 11:04:28 03/15/2024 12:28:07 screening for malformation 441373230 Z36.3 Z3A.20 [id number] MAJO HILL MD [place] [address],[place] [address] 03/15/2024 11:04:47 03/15/2024 12:41:43 Routine care 786883975 Z34.91 [id number] Ted Bennett MD [place] [address],[place] [address] 04/12/2024 09:54:28 04/12/2024 10:42:50 screening 145025571 Z36.2 Gestation period, 24 weeks 057083656 Z3A.24 [id number] MAJO HILL MD [place] [address],[place] [address] 04/12/2024 09:54:47 04/12/2024 11:00:08 Dilatation of renal pelvis 800254045 O36.8999 - bilateral- L 4.2mm, R4.8mm at 24 weeks. Gestation period, 24 weeks 979254442 Z3A.24 Placenta circumvallata 3301734 O43.119 - 32 week growth [place] [id number] MD Blade ROB [address],[place] [address] 05/10/2024 09:58:59 05/10/2024 10:34:12 Routine care 223198104 Z34.91 [id number] MD [facility] [address],[place] [address] 05/25/2024 09:46:45 05/25/2024 10:29:00 Dilatation of renal pelvis 159195238 O36.8999 - bilateral- L 4.2mm, R4.8mm at 24 weeks. Gestation period, 30 weeks 81939355 Z3A.30 - continue PNV [id number] Ted Bennett MD [place] [address],[place] [address] 06/08/2024 11:27:46 06/08/2024 12:21:44 condition affecting obstetrical care of mother 924507996 O35.8XX0 Z3A.32 [id number] MAJO HILL MD [place] [address],[place] [address] 06/08/2024 11:28:04 06/08/2024 12:48:57 Excessive growth affecting management of mother 46893652 O36.63X0 - 98% at 32 weeks- repeat at 36 weeks Gestation period, 32 weeks 7350345 Z3A.32 [id number] [facility] [address],[place] [address] 06/23/2024 09:54:36 06/23/2024 10:15:17 Gestation period, 34 weeks 07616052 Z3A.34 [id number] Ted Bennett MD [place] [address],[place] [address] 07/06/2024 10:34:20 07/06/2024 11:18:17 Large for gestation age fetus 192651374 O36.63X0 Z3A.36 [id number] [facility] [address],[place] [address] 07/06/2024 10:34:37 07/06/2024 13:49:43 Gestation period, 36 weeks 89112927 Z3A.36 screening 2437 65189 Z36.85 [id number] Ted Bennett MD [place] [address],[place] [address] 07/14/2024 10:33:46 07/14/2024 11:13:19 Large for gestation age fetus 962049814 O36.63X0 Z3A.37 [id number] Ted Bennett MD [place] [address],[place] [address] 07/14/2024 10:34:00 07/14/2024 11:45:44 Routine care 730464870 Z34.83 [id number] Josette Granda CNM [place] [address] [address] 07/21/2024 09:35:54 07/21/2024 12:12:44 Gestation period, 38 weeks 26492215 Z3A.38 Health Concerns Section Related Observation LastModified by Organization Detai ls LastModified Time None Recorded Concern Status LastModified by Organization Details LastModified Time None Recorded Advance Directives Directive None Recorded Payers Encounter Date Sequence Insurance Name Policy Number Policy Torres Covered Member ID Torres Member ID Guarantor Name 07/06/2024 1 [facility] [id number] Lisa Candy [id number] Lisa Candy 07/06/2024 1 [facility] [id number] Ilsa Candy [id number] Lisa Candy 07/14/2024 1 [facility] [id number] Lisa Candy [id number] Lisa Candy 07/14/2024 1 [facility] [id number] Lisa Candy [id number] Lisa Candy 07/21/2024 1 [facility] [employer] [id number] Lisa Candy [id number] Lisa Candy OBGyn Episode Ob Episode Information Episode Created Date Number of Fetuses Patient Bloodtype Patient rh Status Prepregnancy Weight lbs Domestic Partner Domestic Partner Phone Father Name Computer Video Game Designer Status 03/12/20 22 1 CLOSED Fetus Data First Name Last Name Admitted to NICU Weight (g) Sex Living Outcome Pediatric Complications Fetus ID Race Codes Race Delivery Type 3628.73 6 M Full Term 26275 Vaginal Delivery Devon Calculation Initial Devon Date [...] Domestic Partner Domestic Partner Phone Father Name Computer Video Game Designer Status 03/12/20 22 1 DELETED Devon Calculation [...] Domestic Partner Domestic Partner Phone Father Name Computer Video Game Designer Status 01/19/20 24 1 B Positive 181 Radhahussein Singh OPEN Fetus Data First Name Last Name Admitted to NICU Weight (g) Sex Living Outcome Pediatric Complications Fetus ID Race Codes Race Delivery Type 36421 Problems Problem Notes 32wk growth Problem Name Start Date End Date Resolution Snomed Code Not e Large for gestation age fetus 230054225 LIKELY MACROSOM IC AT 39 WKS Dilatation of renal pelvis 732514944 rpt us at 32wks Devon Calculation Initial [...] Date Ultra Sound Latest Days Gestation 0 [email or web address] 01/19/2024 07/30/19 25 0 Pre- Flowsheet Flowsheet [...] Type Weight in lbs Pre/Post Dialysis Refused 178.866874098480 BP Diastolic BP Location Tested BP Systolic [...] Weight in lbs Pre/Post Dialysis Refused Weight 172.392652771272 BP Diastolic BP Location Tested BP Systolic [...] Type Weight in lbs Pre/Post Dialysis Refused 177.777948958693 BP Diastolic BP Location Tested BP Systolic [...] Type Weight in lbs Pre/Post Dialysis Refused 181.322227147501 BP Diastolic BP Location Tested BP Systolic [...] Weight in lbs Pre/Post Dialysis Refused Weight 187.016738548711 BP Diastolic BP Location Tested BP Systolic [...] Type Weight in lbs Pre/Post Dialysis Refused 188.206515496514 BP Diastolic BP Location Tested BP Systolic [...] Weight in lbs Pre/Post Dialysis Refused Weight 190.594196819746 BP Diastolic BP Location Tested BP Systolic [...] Weight in lbs Pre/Post Dialysis Refused Weight 195.020339431300 BP Diastolic BP Location Tested BP Systolic [...] Type Weight in lbs Pre/Post Dialysis Refused 197.978215118555 BP Diastolic BP Location Tested BP Systolic [...] Type Weight in lbs Pre/Post Dialysis Refused 202.856334119758 BP Diastolic BP Location Tested BP Systolic [...] Weight in lbs Pre/Post Dialysis Refused Weight 203.656199382925 BP Diastolic BP Location Tested BP Systolic BP Type 90 134 Fetus Heart Rate Present Fetus Movement A Yes Comments Patient is having back pain and discharge. bp elevated today, denies headache, visual changes, epigastric pain, to ld for evaluation, would like to tryfor vaginal delivery Menstrual History Last Menstrual Date Menses Monthly [...]
--- OUTSIDE RECORDS SUMMARY | 2024-07-23 05:08 | XMS_ITS | CONTINUITY OF CARE DOCUMENT ---
Author Name geovannasadia moni Address Unknown Organization [facility] Address [address] [place] [address] Phone [phone] Care Team Providers Care Casino Banker Name Role Phone KHAI MILLER MD Unavailable INSURANCE PROVIDERS Payer name Policy type / Coverage type [place] red democrat [employer] Other [id number]
--- NOTE | 2024-07-23 05:16 | LDADM ---
This patient, Lisa Gupta, was admitted to Labor/Delivery/Recovery 104 on 07/23/24 at 05:02. Plans for labor, pain management and were discussed with patient. Patient/family oriented to hospital policies and general routines including ID bracelet, bed and alarms, visiting hours, pain management, procedures, bathroom and other care routines, personal items, smoking policy, room service/diet and guest tray routines, security routines, and visiting hours. Patient/Family are encouraged to report perceived risks to care and to ask questions if they do not understand what they are told or what they should do. See OBIX for further documentation.
[2024-07-23 05:47] LABS: Basophils Percent Auto 0.3 % (0.2-1.2); Eosinophils Absolute Auto 0.1 K/mm3 (0-0.3); Eosinophils Percent Auto 1.4 % (0-4.4); Hematocrit 34.9 % (37.0-47.0); Hemoglobin 11.6 g/dL (12.0-15.0); Immature Granulocyte Absolute 0.07 K/mm3 (0.00-0.031); Immature Granulocyte Percent A 0.7 % (0-0.5); Lymphocytes Absolute Auto 1.97 K/mm3 (0.9-3.2); Lymphocytes Percent Auto 19.1 % (18.3-44.2); Mean Corpuscular HGB Conc 33.2 g/dl (32-36); Mean Corpuscular Hemoglobin 31.1 pg (26-34); Mean Corpuscular Volume 93.6 fl (80-100); Monocytes Absolute Auto 0.8 K/mm3 (0.1-0.6); Monocytes Percent Auto 7.4 % (2.6-8.5); Neutrophils Absolute Auto 7.4 K/mm3 (1.3-6.7); Neutrophils Percent Auto 71.1 % (45.5-73.1); Platelet Count Result 242 k/mm3 (150-375); Red Blood Count 3.73 M/mm3 (4.2-5.4); Red Cell Distribution Width 13.2 % (11.5-14.5); White Blood Count 10.3 K/mm3 (4.5-10.0)
[2024-07-23] MEDS: LACTATED RINGERS 1,000 ML 125 ML IV CONT ×2 (05:56→13:05)
[2024-07-23] MEDS: OXYTOCIN 30 UNITS/NS 500 ML 30 UNITS/500 ML BAG IV CONT (05:56)
--- NOTE | 2024-07-23 06:04 | WPDANESEPP ---
Anes - Eval Pre Procedure Procedure: Labor epidural Date/Time: 07/23/24 06:04 Surgeon: Sabrina Preop Diagnosis: Abdominal pain with contractions Pre Op Diagnosis: IOL Patient Data Age: 33 Gender: F Height: 1.7 m Weight: 92 kg Last Vital Signs Temp 98 F 07/23/24 06:00 Pulse 77 07/23/24 06:01 BP 103/81 07/23/24 06:01 Pulse Ox 100 07/23/24 06:00 O2 Del Method Room Air 07/23/24 05:16 Allergies Allergy/AdvReac Type Severity Reaction Status Date / Time No Known Allergies Allergy Verified 07/21/24 09:49 Home Medications ?Medication ?Instructions ?Recorded ?Confirmed ?Type ferrous sulfate 325 mg (65 mg 325 mg PO DAILY 06/29/24 07/23/24 History iron) tablet (FeroSul) vit no.95-ferrous 1 tablet PO DAILY 06/29/24 07/23/24 History fumarate 28 mg-folic acid 800 mcg tablet () Laboratory Tests 07/23/24 05:31 WBC 10.3 H K/mm3 (4.5-10.0) RBC 3.73 L M/mm3 (4.2-5.4) Hgb 11.6 L g/dL (12.0-15.0) Hct 34.9 L % (37.0-47.0) MCV 93.6 fl (80-100) MCH 31.1 pg (26-34) MCHC 33.2 g/dl (32-36) RDW 13.2 % (11.5-14.5) Plt Count 242 k/mm3 (150-375) MPV 10.0 fl (7.4-10.4) Immature Gran % (Auto) 0.7 H % (0-0.5) Neut % (Auto) 71.1 % (45.5-73.1) Lymph % (Auto) 19.1 % (18.3-44.2) Cascade % (Auto) 7.4 % (2.6-8.5) Eos % (Auto) 1.4 % (0-4.4) Baso % (Auto) 0.3 % (0.2-1.2) Lymph # (Auto) 1.97 K/mm3 (0.9-3.2) Cascade # (Auto) 0.8 H K/mm3 (0.1-0.6) Eos # (Auto) 0.1 K/mm3 (0-0.3) Baso # (Auto) 0.0 K/mm3 (0.0-0.1) Abs Immat Gran (auto) 0.07 H K/mm3 (0.00-0.031) Absolute Neuts (auto) 7.4 H K/mm3 (1.3-6.7) Absolute Nucleated RBC 0.000 K/mm3 (0.0-0.012) Nucleated RBC % 0.0 % (0.0-0.2) HIV 1&2 Ab/P24 Ag 4thGn Pending : gestational age HCG: positive Patient hx anesthesia problems: none Family hx anesthesia problems: none Results Review: All pre-operative results and documents have been reviewed as part of the pre-operative evaluation. [facility] Past Medical History Medical History (Updated 07/23/24 @ 06:06 by Michele Moss Jr., CRNA) and not yet delivered Overweight (BMI 25.0-29.9) Surgical History Surgical History (Updated 07/23/24 @ 06:06 by Michele Moss Jr., CRNA) Hx of tonsillectomy Family History Family History Other Acute myocardial infarction Diabetes mellitus Hypertension Social History Social History Smoking status: Never smoker Second hand tobacco smoke exposure: No Substance use: never Do You Feel Safe in your Home?: Yes Lack of Transportation: No Lack of Food: Never True Current Housing: I Have Housing Concerned About Future Housing: No Difficulty Paying Gas/Electric Bills: No Difficulty Paying for Meds: No Currently Unemployed: No Education: Bachelor's Degree Difficulty w/ Childcare or Family Care: No Spiritual care concerns: No Exam Day of Procedure 07/23/24 06:04 Patient weight: overweight
[2024-07-23 06:20] LABS: Syphilis IgG/IgM Antibody Negative (Negative)
[2024-07-23 06:33] LABS: HIV 1/2 Ab P24 Ag Result Negative (Negative)
--- NOTE | 2024-07-23 07:30 | WPDOBADMIT ---
Obstetrics - Admit Note Admission Note: record reviewed. No pertinent additions to the history and/or any subsequent changes in the physical findings that are not consistent with the expected course of the were found. Additions to the history and/or subsequent changes in the physical findings follow. IOL, LGA, SVE 3/60/-2 AROM min amount of clear, odorless fluid anticipate vaginal delivery
--- NOTE | 2024-07-23 17:17 | PM.OBPRVD ---
OB - Vaginal Delivery Note Procedure Delivery date: 07/23/24 Induction method: AROM and Per Pitocin Protocol Delivery monitor: Internal FHT and Internal Uterine Route of delivery: Episiotomy description: None Laceration Description: None Specimen: No Quantitative Blood Loss (ml): 100 Anesthesia type: Epidural Disposition: Floor Complications: No immediate complications Baby Date of : 07/23/24 Time of : 17:08 Gestational Age by Date: 39 gender: Male Weight (pounds): 10 Weight (ounces): 2 presentation: vertex position: Left Occiput Anterior Placenta delivery description: Spontaneous Cord Vessel Description: 3 Vessels and Clamped/Cut score one minute: 8 score five minutes: 9
[2024-07-23] MEDS: OXYTOCIN 30 UNITS/NS 500 ML 30 UNITS/500 ML BAG 125 UNITS IV CONT (17:41)
--- NOTE | 2024-07-23 19:31 | OBPPTRN ---
Patient transferred to post room #288 via wheelchair. Support person present. Oriented to unit, room, information board, rooming in, admission packet and security measures. Patient verbalizes understanding.
[2024-07-23] MEDS: IBUPROFEN 600 MG TABLET PO (23:00)
[2024-07-24] VITALS: BP 104/67; PULSE 72; RESP 18; TEMP 36.8; O2SAT 98
[2024-07-24 04:48] LABS: Hematocrit 33.9 % (37.0-47.0); Hemoglobin 10.9 g/dL (12.0-15.0)
[2024-07-24 07:48] VITALS: BP 109/76; PULSE 67; RESP 18; TEMP 35.8; O2SAT 98
--- NOTE | 2024-07-24 08:21 | P.PNOB_ITS ---
OB - PN: Subj Subjective Date/time seen: 07/24/24 08:21 Interval history: pp day 1 doing well supplementing bottle OB - PN: Obj Data Labs 07/24/24 04:17 Labs: Laboratory Results - last 24 hr 07/24/24 04:17 Hgb 10.9 L Hct 33.9 L OB - PN A/P Plan day: 1 Plan: routine care Time Spent With Patient Time: Total time spent is greater than 50% in coordination of care (as documented) at patient's floor/unit and/or counseling patient: Review of Systems 2 Review of Systems: All systems reviewed & are unremarkable except as noted in HPI and below Exam 2 Const: General: cooperative, healthy appearing and comfortable Chest: Chest palpation & inspection: normal inspection of the chest Resp: Effort & Inspection: normal respiratory effort Cardio: Rate: regular rate Back/Spine/Pelvis: Back: no CVA tenderness Skin: General skin exam: normal color Neuro: General: patient oriented x3 Extrem: General: normal to inspection Psych: Appearance: grossly normal
--- NOTE | 2024-07-24 09:03 | PC.NURSE ---
0830. Introductions were made, then consulted with patient to assess needs related to . Discussed with mother her plans to feed her and the experience so far. Encouraged mother to express any questions or concerns she has regarding feedings. Mom expressed that feeding has been difficult at times so far, she requested a nipple shield overnight to help baby latch. She reports has done better staying latched with the help of the shield. Advised her to call out for a latch help, or if she needs assistance waking or positioning baby. is [high risk for ineffective ] and has not fed [effectively at breast & has not been meeting blood sugar requirement for weaning]. Initiated a feeding plan for with a provider order for formula supplementation. Mother is instructed to pump (with a hospital pump or her pump from home) after every or attempt. Mother should only attempt for 10-15 minutes at breast before moving on to supplementation. Support person can feed baby 15ml of pumped milk or formula while mother is pumping. Instructed parents on keeping breastmilk at the bedside until the next feeding or for up to 4 hours. Patient was given breastmilk storage bottles, patient labels, and instructed to date and time all pumped milk. Breast pump instructions given on cleaning, care, usage, that there should be no pain, pumping schedule for milk production, collection, and storage of human milk. Patient was assessed for correct placement, flange size, to pump for adequate milk production every 3 hours and 1-2 times at night (8 times in 24 hours). Reported to Primary RN.? Reviewed the blue feeding worksheet for required output and feeding at least 8-12 times every 24 hours. Resources provided for inpatient and outpatient services with the feeding sheet, mom/baby guide, and name/number written on the communication board. Mother voiced understanding of information and will call if there is a request for assistance. Reported to the Primary RN?
--- NOTE | 2024-07-24 11:37 | NBADM ---
1125.Observed and assisted mother latching infant to the [left] breast in [cross cradle] position. Mother using nipple shield at first and struggling to achieve optimal latch, we tried without the shield instructed mom on holding breast and alignment with . Infant [was] able to maintain an appropriate latch. Mother [declines] nipple pain/discomfort [throughout feeding]. Encouraged mother to keep awake and nursing at the breast for 15 minutes. Mom encouraged to continue with the plan to supplement after this feeding to maintain adequate blood sugar levels. Mother taught to listen for infant swallowing during feedings, infant with many swallows at the breast. Reviewed using the blue feeding sheet to record time and duration of feeding. Mother voiced understanding of the education shared, to call for assistance if the does not latch or if there is discomfort with . name/number on communication board. Reported to the Primary RN.
--- NOTE | 2024-07-24 13:41 | PC.NURSE ---
FOB not here at this time, pt states they are no longer together, he is here right now because baby was born. Pt states her and baby are safe at home, she lives with her mother. She said there is a lot of tension between her and FOB and he is very demanding and likes things his way. She is not sure if he will be back today or be here tomorrow. Care Coordination, Anjali, notified of conversation with mother. will contact her if any issues.
[2024-07-24] MEDS: IBUPROFEN 600 MG TABLET PO (17:39)
[2024-07-24 19:20] VITALS: BP 127/83; PULSE 67; RESP 18; TEMP 36.6; O2SAT 100
[2024-07-25 07:15] VITALS: BP 125/79; PULSE 81; RESP 18; TEMP 36.2; O2SAT 95
--- NOTE | 2024-07-25 08:28 | P.PNOB_ITS ---
OB - PN: Subj Subjective Date/time seen: 07/25/24 08:28 Interval history: pp day 2 doing well supplementing bottle plan d/c home OB - PN: Obj Data Labs 07/24/24 04:17 OB - PN A/P Plan day: 2 Plan: routine care and discharge home Time Spent With Patient Time: Total time spent is greater than 50% in coordination of care (as documented) at patient's floor/unit and/or counseling patient: Review of Systems 2 Review of Systems: All systems reviewed & are unremarkable except as noted in HPI and below Exam 2 Const: General: cooperative and healthy appearing Chest: Chest palpation & inspection: normal inspection of the chest Resp: Effort & Inspection: normal respiratory effort Back/Spine/Pelvis: Back: no CVA tenderness
--- NOTE | 2024-07-25 08:29 | P.DS_ITS ---
DS: Admitting Diagnosis Discharge Date 07/25/24 Admitting Diagnosis IOL DS: Discharge Diagnosis Discharge Diagnosis (1) Vaginal delivery: Code(s): O80 - Encounter for full-term uncomplicated delivery Status: Acute OB - DS: Summary OB Procedures : None OB Procedures Intrapartum: Spontaneous Vag Delivery OB Procedures: : None Peripartum Data Laceration Description: None Episiotomy description: None Time Spent with Patient Time attestation: Total time spent providing and/or coordinating discharge services: Discharge Plan Discharge Attending physician on discharge: Ted Bennett Discharging Clinician: Josette Granda Patient Disposition: Home Activity: pelvic rest Diet: regular Patient Instructions: Antibiotic Form Patient Language: Kiswahili Stand Alone Forms: General Discharge Information Follow-up/Referrals: Josette Granda CNM [Certified Nurse Plant Facilities Technician] - 4 Weeks Discharge Medications: Continued PNV cmb#95-ferrous fumarate-FA [] 28 mg iron- 800 mcg tablet 1 tablet PO DAILY ferrous sulfate [FeroSul] 325 mg (65 mg iron) tablet 325 mg PO DAILY Date of admission: 07/23/24 05:02 Primary Care Provider: UNKNOWN,DOCTOR Admitting Provider: Cas Garcia Attending physician on admission: Cas Garcia Condition: Stable
[2024-07-25] MEDS: IBUPROFEN 600 MG TABLET PO (10:16)
--- NOTE | 2024-07-25 12:32 | PCCCNOTE ---
Met with pt. today. Pt.'s mother and sister at bedside. Pt. lives at home with her mother currently. This is her second child. Pt. reports supportive family. Has all necessary supplies at home for baby including a car set, crib and other belongings. Plans to breastfeed and supplement with formula. Has a breat pump at home. Has had WIC services in the past for her previous child and has the number for the [place] [facility] office if needed. Denies any resources. Reports BLADE and her are . During hospital stay she asked nursing staff to assist her if he becomes too much i.e verbally aggressive to escort him out. BLADE was here visiting without any concerns during stay. She reports she feels safe to return home with her family.
[2024-07-27 10:25] VITALS: BP 126/89; PULSE 79; RESP 18; TEMP 36.9; O2SAT 99
== END 2024-07-25 11:55 | disposition home or self-care (01) | DRG 807 ==
LOC: ANHLDR 05:09 → ANHOB2 19:33
PROVIDERS: Advanced Practice Midwife; Obstetrics & Gynecology; Admitting Provider Obstetrics & Gynecology; Visit Provider Obstetrics & Gynecology
DX: O36.63X0 Maternal care for excessive fetal growth, third trimester, not applicable or unspecified (principal); Z37.0 Single live birth; Z3A.39 39 weeks gestation of pregnancy
CPT/HCPCS: 36415; 85014; 85018; 85025; 86593; 86703; 86850; 86900; 86901; A9270; G0432; J2590; J2795; J7120